=== PATIENT | male | born 1990 | race Two or more races ===

== ENCOUNTER 2020-02-02 03:04 | Emergency (ER) | payer SELFPAY ==
--- NOTE | 2020-02-02 03:05 | NUR ---
Pt to room, responsive to pain only. Swelling noted to forehead and abrasion to nose and bilateral knees. During IV start, pt urinated on himself. Pt given narcan and zofran. Narcan had little effect. When changing patient, small bag with suspicious substance found. Items given to pharmacist in charge owner and md was notified.
[2020-02-02] MEDS ORDERED: NALOXONE 0.4 MG/ML, 1ML ONE (03:18)
[2020-02-02] MEDS ORDERED: NALOXONE 1 MG/ML, 2ML IVPush ONE (03:30)
[2020-02-02 03:32] LABS: BASOPHILS # (AUTO) 0.05 x10^3/uL (0-0.1); BASOPHILS % (AUTO) 1 % (0-1); EOSINOPHILS # (AUTO) 0.25 x10^3/uL (0-0.4); EOSINOPHILS % (AUTO) 3 % (1-7); LYMPHOCYTES # (AUTO) 2.52 x10^3/uL (1-3.4); LYMPHOCYTES % (AUTO) 34 % (22-44); MD NO; MEAN CORPUSCULAR HGB CONC 33.6 g/dL (33.2-36.2); MEAN CORPUSCULAR VOLUME 95.1 fL (81-97); MEAN PLATELET VOLUME 8.5 fL (7.4-10.4); MONOCYTES # (AUTO) 0.52 x10^3/uL (0.2-0.8); MONOCYTES % (AUTO) 7 % (2-9); NEUTROPHILS # (AUTO) 4.13 x10^3/uL (1.8-6.8); NEUTROPHILS % (AUTO) 55 % (42-75); PLATELET COUNT 307 x10^3/uL (130-400); RED BLOOD COUNT 4.59 x10^6/uL (4.38-5.82); RED CELL DISTRIBUTION WIDTH 13.2 % (9.4-14.8)
[2020-02-02 03:43] LABS: ALANINE AMINOTRANSFERASE 35 U/L (12-78); ALBUMIN 3.5 g/dL (3.4-5.0); ANION GAP 11 mmol/L (5-15); CALCIUM 8.3 mg/dL (8.5-10.1); CHLORIDE 111 mmol/L (98-107); CREATININE 0.71 mg/dL (0.7-1.3)
[2020-02-02 03:45] LABS: ALKALINE PHOSPHATASE 104 U/L (45-117); BILIRUBIN,TOTAL 0.6 mg/dL (0.2-1.0); SALICYLATE LEVEL < 1.7 mg/dL (2.8-20.0); TOTAL PROTEIN 7.5 g/dL (6.4-8.2)
[2020-02-02] MEDS ORDERED: ONDANSETRON 2MG/ML, 2ML ONE (03:51)
--- NOTE | 2020-02-02 04:05 | NUR ---
VASCULAR SURGERY PHYSICIAN: MARIBEL JANSEN AND SONIA VILLATORO FOUND A BAGGIE OF CLEAR CRYSTAL ROCKS IN PT. SOCK DURING EVALUTAION OF PT. THIS RN AND REMELT PAN TANK OPERATOR DISCARDED INTO SHARPS CONTAINER AT THIS TIME.
[2020-02-02] MEDS ORDERED: ONDANSETRON 2MG/ML, 2ML IVPush ONE (04:30)
[2020-02-02] MEDS ORDERED: PLEASE ENTER ALLERGIES MC SCH (05:00)
--- NOTE | 2020-02-02 05:09 | NUR ---
MRI form faxed to [phone]. Discussed lack of pmh on pt with MD Don. Implied consent is appropriate at this time.
--- NOTE | 2020-02-02 05:28 | NUR ---
Pt transported to MRI at this time
--- NOTE | 2020-02-02 06:07 | NUR ---
Pt back from MRI
--- NOTE | 2020-02-02 07:00 | NUR ---
Late Entry: Report received from Carri SCOTT, pt care transferred to Ramakrishna SCOTT and Albina SCOTT at this time.
[2020-02-02 07:01] LABS: AMPHETAMINE SCREEN, URINE Negative (Negative); BARBITURATE SCREEN, URINE Negative (Negative); BENZODIAZEPINE SCREEN, URINE Negative (Negative); CANNABINOID SCREEN, URINE Positive (Negative); COCAINE SCREEN, URINE Negative (Negative); METHADONE SCREEN, URINE Negative (Negative); OPIATE SCREEN, URINE Negative (Negative)
--- NOTE | 2020-02-02 07:34 | NUR ---
pt placed on ETCO2, pt resting in gurney, discharge up, awaiting pt return to sobriety. Even and unlabored respirations, NAD, WCTM.
--- NOTE | 2020-02-02 07:48 | NUR ---
Pt resting in gurney, unlabored and even respirations, call light within reach, NAD, denies additional needs at this time. WCTM.
[2020-02-02 08:49] VITALS: BP 122/78
--- NOTE | 2020-02-02 08:56 | NUR ---
Pt given pants from donation room, pt ambulating independently with a stead gait to discharge desk.
== END 2020-02-02 09:12 | disposition home or self-care (01) ==
LOC: ED 09:06
DX: F10.120 Alcohol abuse with intoxication, uncomplicated (principal); G31.2 Degeneration of nervous system due to alcohol; R93.0 Abnormal findings on diagnostic imaging of skull and head, not elsewhere classified; Y90.9 Presence of alcohol in blood, level not specified
CPT/HCPCS: 36415; 70450; 70551; 80053; 80307; 85025; 96374; 96375; 99285; J2310; J2405